=== PATIENT | male | born 1960 | race Caucasian/White ===

== ENCOUNTER 2020-09-16 20:45 | Observation (INO) | payer OTHER, SELFPAY ==
[2020-09-16 20:46] VITALS: BP 143/86; PULSE 104; RESP 18; TEMP 36.6; O2SAT 90; BMI 41.5
--- NOTE | 2020-09-16 21:12 | EKG12_ITS ---
Test Reason : CRAMPS UP SIDES Blood Pressure : / mmHG Vent. Rate : 099 BPM Atrial Rate : 100 BPM P-R Int : 000 ms QRS Dur : 112 ms QT Int : 350 ms P-R-T Axes : 000 102 -14 degrees QTc Int : 449 ms Atrial fibrillation with premature ventricular or aberrantly conducted complexes Right bundle branch block Inferior infarct , age undetermined , cannot be excluded Abnormal ECG Confirmed by FAINA TUTTLE, AMARI ([id number]), material expeditor VIVIAN OTERO ([id number]) on 09/20/2020 12:27:45 PM Referred By: MAC Confirmed By:AMARI EISENBERG MD
[2020-09-16 21:15] VITALS: O2SAT 91
[2020-09-16 21:28] LABS: Absolute Lymphocyte Count 0.97 X10^3/uL (0.83-4.51); Absolute Neutrophil Count 3.8 X10^3/uL (2.0-7.7); Basophil# 0.06 X10^3/uL; Eosinophil# 0.11 X10^3/uL; Eosinophils% 1.9 % (0-5); Hematocrit 42.4 % (40-54); Hemoglobin 13.7 g/dL (13.0-16.5); Lymphocyte # 0.97 X10^3/ul (0.83-4.51); Lymphocyte % 16.7 % (19-41); Mean Corp Hgb Conc 32.3 g/dL (32-36); Mean Corpuscular Hgb 29.3 pg (27.0-32.0); Mean Corpuscular Volume 90.8 fL (80-94); Mean Platelet Vol. 10.1 fl (6.2-12.0); Monocyte# 0.86 X10^3/uL; Monocyte% 14.8 % (0-10); NRBC Flagged by Analyzer 0 % (0-5); Neutrophil # 3.81 X10^3/uL (2.7-7.7); Neutrophil % 65.4 % (47-70); Platelet Count 209 K/mm3 (150-450); RBC Distribution Width CV 15.9 % (11.6-14.6); RBC Distribution Width SD 51.8 fl (35.1-43.9); Red Blood Count 4.67 M/mm3 (4.6-6.2); White Blood Count 5.8 K/mm3 (4.4-11.0)
--- NOTE | 2020-09-16 21:34 | EDS_ITS ---
HPI History of Present Illness Chief Complaint: General Illness Informant: patient Onset/Context/Timing Onset: Days Context: Gradual Onset Timing: Continuous Current Severity: Moderate Maximum Severity: Moderate Narrative Narrative: The patient is a 59-year-old male medical history significant for pulmonary thrombosis, atrial fibrillation, recent hospitalization for volume overload, who presents with bilateral leg edema and cramping. Patient states he was recently hospitalized in [place]. He states he was diuresed almost 20 pounds. He states that he has been compliant with his medications. He is taken off his Xarelto to have a dental extraction. He states that for the past 3 days, he has had gradual worsening of edema in his legs. He is also had some cramping. [facility] Medical History Pulmonary emboli Allergy/AdvReac Type Severity Reaction Status Date / Time No Known Allergies Allergy Verified 09/16/20 20:48 no significant family history no surgical history Social History Smoking Status: Former smoker ROS ROS ED Constitutional Constitutional ED: Denies chills or fever(s) Eyes Eyes: Denies blurry vision or change in vision ENT ENT ED: Denies ear pain or sore throat Cardiovascular Cardiovascular: Reports dyspnea; Denies chest pain or palpitations Respiratory/Chest Respiratory/Chest: Reports dyspnea; Denies cough or dyspnea on exertion Gastrointestinal Gastrointestinal: Denies abdominal pain, nausea or vomiting Genitourinary Genitourinary ED: Denies dysuria or urinary frequency Musculoskeletal Musculoskeletal: Reports muscle cramps; Denies arthralgias or myalgias Integumentary Denies rash Neurologic Neurologic: Denies headache(s) or paresthesias Psychiatric Psychiatric: Denies anxiety or depression Endocrine Endocrinology: Denies polydipsia or polyuria Allergic/Immunologic Allergic/Immunologic ED: Denies urticaria EXAM Physical Exam Const Vital Signs: 09/16/20 20:46 09/16/20 21:15 Temperature 97.9 F Temperature Source Temporal Pulse Rate 104 H Respiratory Rate 18 Respiratory Effort Normal Respiratory Pattern Normal Blood Pressure 143/86 H Blood Pressure Mean 105 Pulse Ox 90 91 Oxygen Delivery Method Room Air Room Air Oxygen Flow Rate (L/min) 2 Positive well nourished and well developed General Appearance ED: well developed HEENT Reports normocephalic, head/scalp atraumatic and moist mucous membranes Eyes PERRL and EOMs intact bilaterally Neck no lymphadenopathy and supple General: Negative for tenderness Chest Wall inspection of chest normal and palpation of chest normal Resp normal respiratory effort Auscultation: crackles Cardio regular rate, regular rhythm and no murmurs Jugular Venous Distention: JVD GI normal to inspection, nondistended, normoactive bowel sounds Palpation: Negative for tender, guarding or rebound tenderness present Back/Spine no CVA tenderness Cervical Spine: Negative for cervical spine tenderness Thoracic Spine / Upper Back: Negative for thoracic spinal tenderness Extremity normal to inspection; Negative for no pedal edema Extremity Narrative: Patient has 3+ symmetric lower extremity edema General Extremety ED: Negative for tenderness Neuro oriented x3 and CN's II-XII intact bilaterally Neuro Narrative: No focal deficits appreciated. Sensorium / Orientation: alert Psych mental status grossly normal Skin no rashes or lesions noted, no wounds and skin turgor normal MDM MDM MDM Narrative Medical decision making narrative: [facility] of breath and leg edema. He does have history of pulmonary embolus and has been on Xarelto, but held it for 3 days for his dental extraction. He states he was recently hospitalized and aggressively diuresed. He states his been taking his home Lasix with little urine output. He states that his swelling has worsened and he has been more short of breath. The patient was 88% on room air on arrival. He does have crackles in both bases. EKG was obtained which showed atrial fib with a few PVCs. He does have history of A. fib. Chest x-ray reviewed by myself shows markedly enlarged cardiac silhouette with cephalization and evidence of CHF. Patient's BNP is elevated. His troponin is indeterminant, but he does have evidence of acute kidney injury with a creatinine of 2. He also has elevation of his bilirubin which I feel is likely from right heart failure. With the patient's hypoxia and evidence of volume overload, I do feel that he will require admission. Impression 1. CHF exacerbation 2. Hypoxia Lab Data Attestation: I reviewed the patient's lab results. Labs: Laboratory Results - last 24 hr 09/16/20 09/16/20 09/16/20 21:03 21:03 21:03 WBC 5.8 RBC 4.67 Hgb 13.7 Hct 42.4 MCV 90.8 MCH 29.3 MCHC 32.3 RDW Std Deviation 51.8 H RDW Coeff of Avery 15.9 H Plt Count 209 MPV 10.1 Immature Gran % (Auto) 0.200 Neut % (Auto) 65.4 Lymph % (Auto) 16.7 L [place] % (Auto) 14.8 H Eos % (Auto) 1.9 Baso % (Auto) 1.0 Absolute Neuts (auto) 3.8 Absolute Lymphs (auto) 0.97 Nucleated RBC % 0 Sodium 136 Potassium 3.2 L Chloride 97 L Carbon Dioxide 29.0 Anion Gap 10 BUN 41 H Creatinine 2.06 H Estim Creat Clear Calc 39.37 Est GFR (MDRD) Af Amer 43 L Est GFR (MDRD) Non-Af 35 L BUN/Creatinine Ratio 19.9 Glucose 96 Calcium 8.7 Total Bilirubin 4.90 H AST 55 H ALT 41 Alkaline Phosphatase 123 H Troponin I 0.052 H B-Natriuretic Peptide 507.5 H Total Protein 8.0 Albumin 3.4 Globulin 4.6 H Albumin/Globulin Ratio 0.7 L Radiography Chest X-Ray - ED: 1 View, Read by ED Physician, Cardiomegaly and CHF Diagnostic Testing: Radiology Impression Chest X-Ray 09/16/20 21:55 IMPRESSION: Probable early congestive failure. Clinical correlation recommended Electronically Signed: Alex Croft MD at 22:32 EDT , Service support , EKG Initial EKG: Attestation: I personally reviewed and interpreted this EKG as follows: Interpretation: No Acute Injury Pattern and Atrial Fibrillation Prior: No Prior Discharge Plan Triage Chief Complaint: General Illness ED Provider: Ryan Jamison Dx/Rx/DC Orders Clinical Impression: Acute exacerbation of CHF (congestive heart failure), Hypoxia, Acute kidney injury Referrals: HERMILA BUTCHER [Other]
[2020-09-16 21:42] LABS: ALB/GLOB Ratio 0.7 RATIO (0.9-2.4); AST(SGOT) 55 U/L (15-37); Alanine Aminotransfer ALT/SGPT 41 U/L (16-61); Albumin, Serum 3.4 g/dL (3.2-5.0); Alkaline Phosphatase 123 U/L (45-117); Anion Gap 10 (5-15); BUN 41 mg/dL (7-18); BUN/Creat Ratio 19.9 RATIO (10-20); Calcium,Total 8.7 mg/dL (8.5-10.1); Chloride 97 mmol/L (98-107); Creatinine, Serum 2.06 mg/dL (0.70-1.30); EST Glomerular Filtration Rate 35 mL/min (>60); Est Glom Filt Rate - Afr Amer 43 mL/min (>60); Estimated Creatinine Clearance 39.37 ml/min; Globulin 4.6 g/dL (2.2-4.2); Glucose 96 mg/dL (74-106); Potassium 3.2 mmol/L (3.5-5.1); Sodium Level 136 mmol/L (136-145)
[2020-09-16 21:45] LABS: BNP,B-Type NATRIURETIC PEPTIDE 507.5 pg/mL (0-100)
--- NOTE | 2020-09-16 21:55 | RAD_ITS ---
STUDY: X-RAY CHEST REASON FOR EXAM: Male, 59 years old. sob TECHNIQUE: AP portable COMPARISON: None. FINDINGS: Mild bilateral perihilar interstitial edema. There is no demonstrated pleural abnormality. Heart is enlarged.. Normal mediastinum and mevla. Normal visualized pulmonary arteries. Normal visualized aortic arch and descending thoracic aorta. Dorsal spine and shoulders demonstrate degenerative change. Normal visualized ribs, and clavicles.. There is no demonstrated abnormality of the visualized soft tissue structures of the upper abdomen. RAD/Chest 1 View (Portable) IMPRESSION: Probable early congestive failure. Clinical correlation recommended Electronically Signed: Alex Croft MD at 22:32 EDT , Service support ,
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
[2020-09-16] MEDS: Potassium Chloride Oral Tablet 20 MEQ 60 MEQ PO (23:20)
[2020-09-16] MEDS: Furosemide 40 MG/4 ML Vial IV (23:20)
[2020-09-16 23:22] VITALS: O2SAT 88
[2020-09-16 23:25] VITALS: BP 119/82; PULSE 97; RESP 16; RESP 18; TEMP 36.7; O2SAT 93
[2020-09-17] VITALS (13 sets, daily range): BP systolic 107–130; BP diastolic 71–84; PULSE 76–108; RESP 18; TEMP 36.1–37.1; O2SAT 92–96; BMI 42.6
--- NOTE | 2020-09-17 01:10 | VDLE_ITS ---
Reason For Study: Pain RIGHT LEFT GSV is normal. GSV is normal. CFV is compressible, spontaneous, competent CFV is compressible, spontaneous, competent, and demonstrates pulsatile venous flow. and demonstrates pulsatile venous flow. Rt FV, Rt PopV, and Rt T/P Trunk are Lt FV, Lt PopV, and Lt GastrocV are partially partially compressible with bright compressible with bright intraluminal echoes intraluminal echoes consistent with chronic consistent with chronic DVT DVT Lt T/P Trunk is dilated and non compressible Rt GastrocV and Rt PTV are dilated and non consistent with acute DVT compressible consistent with acute DVT Pulsatile venous flow noted Lt CFV, FV, and Pulsatile venous flow noted Rt CFV, FV, and PopV. PopV. PTV is compressible. RT PerV is compressible. LT PerV is compressible. Procedure Exam performed portable in patient room. A preliminary report was called and/or faxed to Laura BUTLER. VL/Venous Duplex US - Jordon Extrem Interpretation Summary Complicated examination Acute deep venous thrombosis right gastrocnemius vein and posterior tibial vein . Chronic deep venous thrombosis right femoral and popliteal and tibioperoneal tr unk Acute deep vein thrombosis left tibioperoneal trunk Chronic deep vein thrombosis left femoral, popliteal and gastrocnemius veins Pulsatile venous flow is noted bilaterally consistent with proximal venous hype rtension or obstruction. Clinical correlation would be appropriate. Patent and compressible bilateral great saphenous veins Ordering Physician: Gerardo Bucio Performed By: Quin Rivera, LAUREN, RVT
[2020-09-17 04:46] LABS: Absolute Lymphocyte Count 0.86 X10^3/uL (0.83-4.51); Absolute Neutrophil Count 3.2 X10^3/uL (2.0-7.7); Basophil# 0.06 X10^3/uL; Basophil% 1.2 % (0-1); Eosinophil# 0.16 X10^3/uL; Eosinophils% 3.1 % (0-5); Hematocrit 40.1 % (40-54); Hemoglobin 12.9 g/dL (13.0-16.5); Lymphocyte # 0.86 X10^3/ul (0.83-4.51); Lymphocyte % 16.7 % (19-41); Mean Corp Hgb Conc 32.2 g/dL (32-36); Mean Corpuscular Hgb 29.5 pg (27.0-32.0); Mean Corpuscular Volume 91.6 fL (80-94); Mean Platelet Vol. 10.4 fl (6.2-12.0); Monocyte# 0.89 X10^3/uL; Monocyte% 17.3 % (0-10); NRBC Flagged by Analyzer 0 % (0-5); Neutrophil # 3.16 X10^3/uL (2.7-7.7); Neutrophil % 61.3 % (47-70); Platelet Count 191 K/mm3 (150-450); RBC Distribution Width CV 15.9 % (11.6-14.6); RBC Distribution Width SD 52.4 fl (35.1-43.9); Red Blood Count 4.38 M/mm3 (4.6-6.2); White Blood Count 5.2 K/mm3 (4.4-11.0)
[2020-09-17 05:15] LABS: Anion Gap 11 (5-15); BUN 37 mg/dL (7-18); BUN/Creat Ratio 21.8 RATIO (10-20); Calcium,Total 8.2 mg/dL (8.5-10.1); Chloride 99 mmol/L (98-107); EST Glomerular Filtration Rate 44 mL/min (>60); Est Glom Filt Rate - Afr Amer 53 mL/min (>60); Estimated Creatinine Clearance 47.71 ml/min; Glucose 87 mg/dL (74-106); Sodium Level 136 mmol/L (136-145)
[2020-09-17] MEDS: 0.9% Saline Lock 10 ML Syringe IV ×2 (09:01→18:19)
[2020-09-17] MEDS: Potassium Chloride Oral Tablet 20 MEQ PO ×2 (09:02→17:25)
[2020-09-17] MEDS: Rivaroxaban 20 MG Tablet PO (09:02)
[2020-09-17] MEDS: Potassium Chloride Oral Tablet 20 MEQ 40 MEQ PO (09:02)
[2020-09-17] MEDS: Furosemide 40 MG/4 ML Vial IV ×2 (09:02→18:20)
--- NOTE | 2020-09-17 11:39 | PCM.PN.HOSP ---
Subjective Subjective: Feels much improved today compared to when he came in yesterday. Swelling is significantly improved. He states that he does not have heart failure and he does not understand why everybody keeps saying he does, he says that he has pulmonary hypertension secondary to recurrent blood clots in his lungs. Objective Data Objective Data Vital Signs: Vital Signs Temp Pulse Resp BP Pulse Ox 97.4 F L 97 18 112/74 93 09/17/20 08:48 09/17/20 10:59 09/17/20 08:48 09/17/20 08:48 09/17/20 08:48 Oxygen Flow Rate (L/min) 4 Oxygen Delivery Method Nasal Cannula Weight: 295 lb 3.183 oz Body Mass Index (BMI) 42.6 Intake & Output: Intake and Output for Last 24 Hours 09/16/20 09/17/20 09/18/20 03:59 03:59 03:59 Intake Total 220 / 220 Output Total 1250 / 1250 Balance -1030 / -1030 Lab / Micro Data Result Diagrams: 09/17/20 04:25 09/17/20 04:25 Labs: Laboratory Results - last 24 hr 09/16/20 09/16/20 09/16/20 21:03 21:03 21:03 WBC 5.8 RBC 4.67 Hgb 13.7 Hct 42.4 MCV 90.8 MCH 29.3 MCHC 32.3 RDW Std Deviation 51.8 H RDW Coeff of Avery 15.9 H Plt Count 209 MPV 10.1 Immature Gran % (Auto) 0.200 Neut % (Auto) 65.4 Lymph % (Auto) 16.7 L [place] % (Auto) 14.8 H Eos % (Auto) 1.9 Baso % (Auto) 1.0 Absolute Neuts (auto) 3.8 Absolute Lymphs (auto) 0.97 Nucleated RBC % 0 Sodium 136 Potassium 3.2 L Chloride 97 L Carbon Dioxide 29.0 Anion Gap 10 BUN 41 H Creatinine 2.06 H Estim Creat Clear Calc 39.37 Est GFR (MDRD) Af Amer 43 L Est GFR (MDRD) Non-Af 35 L BUN/Creatinine Ratio 19.9 Glucose 96 Calcium 8.7 Total Bilirubin 4.90 H AST 55 H ALT 41 Alkaline Phosphatase 123 H Troponin I 0.052 H B-Natriuretic Peptide 507.5 H Total Protein 8.0 Albumin 3.4 Globulin 4.6 H Albumin/Globulin Ratio 0.7 L 09/17/20 09/17/20 09/17/20 01:40 04:25 04:25 WBC 5.2 RBC 4.38 L Hgb 12.9 L Hct 40.1 MCV 91.6 MCH 29.5 MCHC 32.2 RDW Std Deviation 52.4 H RDW Coeff of Avery 15.9 H Plt Count 191 MPV 10.4 Immature Gran % (Auto) 0.400 Neut % (Auto) 61.3 Lymph % (Auto) 16.7 L [place] % (Auto) 17.3 H Eos % (Auto) 3.1 Baso % (Auto) 1.2 H Absolute Neuts (auto) 3.2 Absolute Lymphs (auto) 0.86 Nucleated RBC % 0 Sodium 136 Potassium 3.0 L Chloride 99 Carbon Dioxide 26.0 Anion Gap 11 BUN 37 H Creatinine 1.70 H Estim Creat Clear Calc 47.71 Est GFR (MDRD) Af Amer 53 L Est GFR (MDRD) Non-Af 44 L BUN/Creatinine Ratio 21.8 H Glucose 87 Calcium 8.2 L Total Bilirubin AST ALT Alkaline Phosphatase Troponin I 0.043 B-Natriuretic Peptide Total Protein Albumin Globulin Albumin/Globulin Ratio 09/17/20 04:25 WBC RBC Hgb Hct MCV MCH MCHC RDW Std Deviation RDW Coeff of Avery Plt Count MPV Immature Gran % (Auto) Neut % (Auto) Lymph % (Auto) [place] % (Auto) Eos % (Auto) Baso % (Auto) Absolute Neuts (auto) Absolute Lymphs (auto) Nucleated RBC % Sodium Potassium Chloride Carbon Dioxide Anion Gap BUN Creatinine Estim Creat Clear Calc Est GFR (MDRD) Af Amer Est GFR (MDRD) Non-Af BUN/Creatinine Ratio Glucose Calcium Total Bilirubin AST ALT Alkaline Phosphatase Troponin I 0.039 B-Natriuretic Peptide Total Protein Albumin Globulin Albumin/Globulin Ratio Radiography Diagnostic Testing: Radiology Impression Chest X-Ray 09/16/20 21:55 IMPRESSION: Probable early congestive failure. Clinical correlation recommended Electronically Signed: Alex Croft MD at 22:32 EDT , Service support , Physical Exam Const alert, oriented x3 and no apparent distress HEENT moist oral mucous membranes Head and Scalp: normocephalic Eyes PERRL, EOMs intact bilaterally and conjunctivae normal Neck no lymphadenopathy, supple and no JVD Resp normal respiratory effort and clear to auscultation bilaterally Auscultation: Negative for crackles, rales, rhonchi or wheezes Cardio regular rate, regular rhythm, S1 normal heart sound, S2 normal heart sound and no murmurs GI soft to palpation, non-tender and non-distended; Negative for hepatosplenomegaly Extremity General Extremity: edema bilateral lower extremity Details: mild Skin no rashes or lesions noted General Skin Exam: venous stasis Neuro no focal motor deficits and no sensory deficits noted Psych affect normal Assessment & Plan Assessment/Plan (1) Acute respiratory failure with hypoxia: Status: Acute Code(s): J96.01 - Acute respiratory failure with hypoxia (2) Acute on chronic right-sided congestive heart failure: Status: Acute Code(s): I50.813 - Acute on chronic right heart failure (3) Pulmonary hypertension: Status: Acute Code(s): I27.20 - Pulmonary hypertension, unspecified (4) Atrial fibrillation: Status: Chronic Code(s): I48.91 - Unspecified atrial fibrillation Qualifiers: Atrial fibrillation type: paroxysmal Qualified Code(s): I48.0 - Paroxysmal atrial fibrillation (5) Acute kidney injury: Status: Acute Code(s): N17.9 - Acute kidney failure, unspecified (6) Elevated troponin: Status: Acute Code(s): R77.8 - Other specified abnormalities of plasma proteins Plan: Continue with aggressive diuresis, kidney function is improving from 2.06 to 1.7 We will obtain an echo to evaluate his history of pulmonary hypertension versus heart failure. It is likely that he probably has right-sided heart failure secondary to pulmonary hypertension due to PEs Continue with Xarelto Wean nasal cannula as able, will recheck labs in the morning Elevated troponin is likely secondary to his tachycardia and his CHF exacerbation, it is improving and he denies any chest pain at the moment, will monitor
--- NOTE | 2020-09-17 15:10 | CASEMGMT ---
LUKE GAMA assessment: Face to Face with patient for initial transition planning/care coordination assessment. LUKE GAMA introduced self and role at [facility], pt voices understanding and consents to assessment. Pt is lying in bed in some distress with c/o cramping in abdomen. Pt is A/Ox4 and answers all questions appropriately. Pt is here from [place] [employer]. Care providers, pharmacy, and demographics verified. Presentation: Pt c/o lower leg edema, cramping Admitting dx: Acute exac CHF PCP: Bayron Holder in [place] Specialists: adan Doshi; trevor Hu Preferred Pharmacy: [facility] Insurance: [employer] Prescription Benefit: A[employer]na Living Will/HPOA: Pt states has LW/HPOA and is aware that they are not on file. Pt states his son, Oh Laura, is HPOA. LNOK: Oh Laura, son/HPOA Living Arrangements: Pt states lives in home and states no complaints at home. Pt is independent with ADL's. Transportation: Pt states drives self and states no tranportations concerns. DME/HHC: Pt states no current DME or need for any at this time. Pt states on hx of HHC or SNF. Pt states no concerns with going home at time of discharge. 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 Pt states does not smoke cigarettes or drink ETOH. Pt states no further concerns/needs. CM to follow for any further discharge planning/needs. Advised pt to ask for CM if any further questions/concerns/needs arise, voices understanding. Pt Goal: Home [place] LUKE GAMA
[2020-09-18] VITALS (8 sets, daily range): BP systolic 106–116; BP diastolic 66–67; PULSE 86–95; RESP 16–18; TEMP 36.3–36.6; O2SAT 89–95
--- NOTE | 2020-09-18 00:12 | NURSING ---
Pt informed HOSPITALIST MEDICAL DIRECTOR that he does not want to be woken up at all tonight for vitals or anything. HOSPITALIST MEDICAL DIRECTOR informed this RN. LUKE Pino.
[2020-09-18 06:58] LABS: Absolute Lymphocyte Count 0.83 X10^3/uL (0.83-4.51); Absolute Neutrophil Count 3.1 X10^3/uL (2.0-7.7); Basophil# 0.05 X10^3/uL; Eosinophil# 0.33 X10^3/uL; Eosinophils% 6.4 % (0-5); Hematocrit 39.3 % (40-54); Hemoglobin 12.4 g/dL (13.0-16.5); Lymphocyte # 0.83 X10^3/ul (0.83-4.51); Lymphocyte % 16.1 % (19-41); Mean Corp Hgb Conc 31.6 g/dL (32-36); Mean Corpuscular Hgb 29.3 pg (27.0-32.0); Mean Corpuscular Volume 92.9 fL (80-94); Mean Platelet Vol. 10.2 fl (6.2-12.0); Monocyte# 0.86 X10^3/uL; Monocyte% 16.6 % (0-10); NRBC Flagged by Analyzer 0 % (0-5); Neutrophil # 3.08 X10^3/uL (2.7-7.7); Neutrophil % 59.5 % (47-70); Platelet Count 186 K/mm3 (150-450); RBC Distribution Width SD 53.9 fl (35.1-43.9); Red Blood Count 4.23 M/mm3 (4.6-6.2); White Blood Count 5.2 K/mm3 (4.4-11.0)
[2020-09-18 07:28] LABS: Anion Gap 10 (5-15); BUN 37 mg/dL (7-18); BUN/Creat Ratio 25.9 RATIO (10-20); Calcium,Total 8.5 mg/dL (8.5-10.1); Chloride 101 mmol/L (98-107); Creatinine, Serum 1.43 mg/dL (0.70-1.30); EST Glomerular Filtration Rate 54 mL/min (>60); Est Glom Filt Rate - Afr Amer 65 mL/min (>60); Estimated Creatinine Clearance 56.72 ml/min; Glucose 85 mg/dL (74-106); Potassium 3.5 mmol/L (3.5-5.1); Sodium Level 138 mmol/L (136-145)
[2020-09-18 07:35] LABS: Magnesium 1.5 mg/dL (1.6-2.6); Phosphorus 3.6 mg/dL (2.5-4.9)
[2020-09-18] MEDS: Rivaroxaban 20 MG Tablet PO (10:03)
[2020-09-18] MEDS: Potassium Chloride Oral Tablet 20 MEQ PO (10:03)
[2020-09-18] MEDS: Furosemide 40 MG/4 ML Vial IV (10:07)
[2020-09-18] MEDS: 0.9% Saline Lock 10 ML Syringe IV (10:08)
--- NOTE | 2020-09-18 10:30 | NURSING ---
Refused IV Magnesium.
--- NOTE | 2020-09-18 11:17 | NURSING ---
Pt demanding he leave the hospital. Pt refusing to sign the AMA form after being asked multiple times. Pt stated i will need to take this form to my medical referral coordinator before I sign it. The risks of the pt leaving AMA were all discussed with the patient by this RN and Dr. Huerta and he stated his understanding. Teagan Montague RN
--- NOTE | 2020-09-18 11:20 | NURSING ---
Patient removed own IV and pulled off telemetry. Left AMA. Refused to sign AMA form.
--- NOTE | 2020-09-18 13:00 | PN_ITS ---
Progress Note This morning refused magnesium infusion for magnesium of 1.5, yesterday he refused the echo to evaluate his possible heart failure versus pulmonary h ypertension. Today he decided to take out his IV, got dressed, and removed his oxygen. He was needing 4 L nasal cannula to maintain an oxygen sat of 94%. I discussed with him that leaving is a bad idea as he is still requiring oxygen, he repeats that he is fine and he wants to go home. [place] not [place] and he can do what ever he wants. I asked him to sign the may form and he refused to do that until he had his transport coordinator look it over and then he said he would fax it to us. He expressed complete understanding that he was signing out AGAINST MEDICAL ADVICE despite the fact that he then signed the form. He did express understanding of the risks about leaving and still decided to leave.
== END 2020-09-18 11:21 | disposition left against medical advice (07) | DRG 291 ==
LOC: ED 22:04 → PCU 23:46
PROVIDERS: Admitting Provider Hospitalist; Emergency Provider Emergency Medicine; Visit Provider Family Medicine
DX: I50.33 Acute on chronic diastolic (congestive) heart failure (principal); J96.01 Acute respiratory failure with hypoxia; N17.9 Acute kidney failure, unspecified; I50.82 Biventricular heart failure; I27.20 Pulmonary hypertension, unspecified; I48.0 Paroxysmal atrial fibrillation; Z53.29 Procedure and treatment not carried out because of patient's decision for other reasons; Z79.01 Long term (current) use of anticoagulants; Z86.711 Personal history of pulmonary embolism; Z87.891 Personal history of nicotine dependence; Z79.899 Other long term (current) drug therapy
CPT/HCPCS: 36415; 71045; 80048; 80053; 83735; 83880; 84100; 84484; 85025; 93005; 93970; 96374; 96376; 99218; 99285; J7040; Q9957; A4216; G0378; J1940